=== PATIENT | male | born 1935 | race Caucasian/White ===

== ENCOUNTER 2016-11-12 23:17 | Emergency (ER) | payer MEDICARE, OTHER ==
[~2016-11-12] VITALS: Ht 170.2 cm; Wt 74.4 kg
[~2016-11-12 23:17] MED LIST: ACET325T14 PO; ASPI325T4 PO; BISA10SU2 PR; DABI75CA3 PO; DOCU-30 PO; ENOX40SY4 SQ; LORA-446 PO; MAGN400T26 PO; METO25TA35 PO; ONDA4TAB10 PO; OXYC-302 PO; POTA500T PO
[2016-11-13 01:13] VITALS: BP 128/68
== END 2016-11-13 02:35 | disposition home or self-care (01) ==
LOC: ED 23:59
DX: S09.93XA Unspecified injury of face, initial encounter (principal); I11.9 Hypertensive heart disease without heart failure; W01.0XXA Fall on same level from slipping, tripping and stumbling without subsequent striking against object, initial encounter; Y93.89 Activity, other specified; Y92.009 Unspecified place in unspecified non-institutional (private) residence as the place of occurrence of the external cause; Y99.9 Unspecified external cause status
CPT/HCPCS: 70450; 72125; 93005; 99284